=== PATIENT | female | born 1955 | race Caucasian/White ===

== ENCOUNTER 2020-07-18 15:59 | Emergency (ER) | payer OTHER, SELFPAY ==
[2020-07-18 16:02] VITALS: BP 147/81; PULSE 67; RESP 17; TEMP 36.7; O2SAT 98; BMI 27.4
--- NOTE | 2020-07-18 16:06 | EKG12_ITS ---
Test Reason : PALPS/SOB Blood Pressure : / mmHG Vent. Rate : 070 BPM Atrial Rate : 070 BPM P-R Int : 120 ms QRS Dur : 080 ms QT Int : 424 ms P-R-T Axes : 017 045 053 degrees QTc Int : 457 ms Sinus rhythm with Premature supraventricular complexes Otherwise normal ECG Confirmed by REESE DONALD, TREE ([id number]), mapping editor KHADRA RAMAN ([id number]) on 07/20/2020 11:22:23 AM Referred By: JARROD/ELTON Confirmed By:TREE LEIGH MD
--- NOTE | 2020-07-18 16:14 | NURSING ---
NO OLD EKGS
--- NOTE | 2020-07-18 16:40 | ED.VIS.GEN ---
History of Present Illness Chief Complaint: Palpitations Informant: Patient Narrative: 64-year-old female presenting with palpitations. She states is been going on for a few weeks. Patient states she had lab work done at her primary care's office prior to this and states that everything was normal. Patient does not have any chest pain. She does not have a cough, fever, chills. She is eating and drinking normally and making normal urine and stool. Patient states that she gets palpitations whether she is sitting or walking. Today she states her palpitations were the worst over the last couple weeks. She states that she had to sit down because she felt a little short of breath. Patient has a little bit of lightheadedness as well. This is resolved on arrival. Patient's EKG interpreted by myself is sinus rhythm without signs of ischemia and there is one PAC that is noted. I did attempt to get a chest x-ray however the patient refused stating that would be too expensive. Lab work-up is unremarkable with exception of an elevated TSH however her T4 is normal. Patient is on Synthroid. Patient counseled on findings and is comfortable being discharged home at this time. Patient can return precautions. Impression: 1. Palpitations 2. PACs Past Medical History - Allergies and Home Meds Allergies/Adverse Reactions: Allergies Sulfa (Sulfonamide Antibiotics) Adverse Reaction (Verified 07/18/20 16:01) NO ENERGY Primary Care Physician: Krys Dobson MD [Primary Care Provider] - Prior records reviewed: Yes Past Medical History: - - Hyperlipidemia, hypothyroidism Lives: Spouse/ Significant Other Smoking Status: Unknown if ever smoked Alcohol: None Drugs: None Review of Systems General: Denies: Chills, Fever, Sweats Eyes: Denies: Visual changes - bilaterally, Diplopia ENT: Denies: Rhinorrhea, Sore throat Cardiovascular: Reports: Palpitations. Denies: Chest pain, Heart racing Respiratory: Reports: Dyspnea. Denies: Cough, Dyspnea on exertion Gastrointestinal: Denies: Abdominal pain, Nausea, Vomiting, Diarrhea, Melena, Hematochezia Genitourinary: Denies: Dysuria, Hematuria, Frequency Musculoskeletal: Denies: Back pain, Extremity Pain Skin: Denies: Rash, Wounds Neurological: Denies: Headache, Weakness, Numbness Psych: Reports: Anxiety. Denies: Depression, Suicidal thoughts, Suicidal ideations, -, - Physical Exam Vital Signs/Narrative: Vital Signs Temp Pulse Resp BP Pulse Ox 07/18/20 16:02 98.1 F 67 17 147/81 H 98 Inital Vital Signs reviewed: Yes General: Well nourished, No Acute Distress Head: Normocephalic, Atraumatic Eyes: Perrl, EOMI ENT: Moist mucous membranes, Sinus tenderness Cardiovascular: Regular rate, Regular rhythm Respiratory: No distress, CTA bilaterally Extremities: Nontender, No edema Skin: Normal color, No rash. Negative for: Cyanosis, Diaphoresis Neurological: Alert, Oriented x3, Cranial nerves II-XII grossly intact Psychological: Normal affect, Normal Mood ED Disposition - Plan for ED Patient: Disposition: Home or Assisted Living Instructions: ED Palpitations Referrals: Krys Dobson MD [Primary Care Provider] -
[2020-07-18 16:58] VITALS: PULSE 66; O2SAT 99
[2020-07-18 17:07] LABS: Absolute Neutrophil Count 5.4 X10^3/uL (2.0-7.7); Basophil# 0.03 X10^3/uL; Basophil% 0.4 % (0-1); Eosinophil# 0.05 X10^3/uL; Eosinophils% 0.6 % (0-5); Hematocrit 39.6 % (37-47); Hemoglobin 13.1 g/dL (12.0-15.0); Lymphocyte % 21.6 % (19-41); Mean Corp Hgb Conc 33.1 g/dL (32-36); Mean Corpuscular Hgb 33.7 pg (27.0-32.0); Mean Corpuscular Volume 101.8 fL (81-99); Mean Platelet Vol. 10.7 fl (6.2-12.0); Monocyte% 7.6 % (0-10); NRBC Flagged by Analyzer 0 % (0-5); Neutrophil # 5.44 X10^3/uL (2.7-7.7); Neutrophil % 69.3 % (47-70); Platelet Count 277 K/mm3 (150-450); RBC Distribution Width CV 12.2 % (11.6-14.6); RBC Distribution Width SD 45.1 fl (35.1-43.9); Red Blood Count 3.89 M/mm3 (4.2-5.4); White Blood Count 7.9 K/mm3 (4.4-11.0)
--- NOTE | 2020-07-18 17:30 | ED.RN ---
at this time patient verblizes concern for payment of hospital visit and getting xray. patient and nurse discuss she can refuse if she would like or wait till blood work is back to take. dr. velázquez aware patient would like to wait till blood work is resulted.
[2020-07-18 17:32] LABS: Anion Gap 5 (5-15); BUN 23 mg/dL (7-18); BUN/Creat Ratio 36.6 RATIO (10-20); Calcium,Total 9.6 mg/dL (8.5-10.1); Chloride 107 mmol/L (98-107); Creatinine, Serum 0.63 mg/dL (0.55-1.02); EST Glomerular Filtration Rate 101 mL/min (>60); Est Glom Filt Rate - Afr Amer 123 mL/min (>60); Estimated Creatinine Clearance 81.18 ml/min; Glucose 86 mg/dL (74-106); Magnesium 2.2 mg/dL (1.6-2.6); Potassium 3.9 mmol/L (3.5-5.1); Sodium Level 138 mmol/L (136-145)
[2020-07-18 18:20] LABS: T4 Free Direct 0.89 ng/dL (0.76-1.46)
[2020-07-18 18:53] VITALS: BP 171/96; PULSE 62; RESP 16; O2SAT 100
== END 2020-07-18 18:55 | disposition home or self-care (01) ==
PROVIDERS: Emergency Provider Student in an Organized Health Care Education/Training Program; PCP Family Medicine
DX: R00.2 Palpitations (principal); E78.5 Hyperlipidemia, unspecified; E03.9 Hypothyroidism, unspecified; Z79.899 Other long term (current) drug therapy
CPT/HCPCS: 80048; 83735; 84439; 84443; 84484; 85025; 93005; 99284

== ENCOUNTER 2024-04-08 09:57 | Emergency (ER) | payer MEDICARE, BC, SELFPAY ==
[2024-04-08 09:58] VITALS: BP 156/95; PULSE 68; RESP 18; TEMP 37.1; O2SAT 98; BMI 28.3
--- NOTE | 2024-04-08 10:15 | EDS_ITS ---
HPI History of Present Illness Chief Complaint: Chest Pain Onset/Context/Timing Onset: Days (2) Activity at onset: gradual Timing: Intermittent Quality: Positive for Aching and Dull Location: Substernal Worsened By: Nothing and Exertion Relieved By: Nothing Associated Symptoms: Positive for Lightheadedness, Acid Reflux and Palpitations; Negative for Nausea, Vomiting, Diaphoresis, Dyspnea, Cough or Fever Narrative Narrative: Patient presents with chest pain that has been off and on for the past 2 days. Patient describes it as dull and aching. Patient states it comes on gradually. Patient states it is over the substernal area. Patient states that sometimes it comes on with exertion. Patient states other times it comes on at rest. Patient states nothing seems to help with it. Patient admits to occasional lightheadedness. Patient admits to some palpitations. Patient states she does have a history of paroxysmal A-fib. Patient also admits to some reflux symptoms. CVD Risk Factors: Positive for Hypercholesterolemia; Negative for Hypertension, Diabetes, Family History 1' </=55 or Smoking PE Risk Factors: Negative for Recent Travel/Surgery, Recent Immobilization, Prior DVT or PE, Cancer or OCP + Smoking + >/=35 [facility] Medical History Chest pain Home Medications ?Medication ?Instructions ?Recorded ?Last Taken ?Type Sertraline HCl 100 mg PO DAILY 07/18/20 Unknown History alprazolam 0.25 mg tablet 0.125 mg PO DAILY 07/18/20 Unknown History folic acid 1 mg tablet 1 mg PO DAILY 07/18/20 Unknown History levothyroxine 75 mcg tablet 75 mcg PO DAILY 07/18/20 Unknown History methotrexate sodium 2.5 mg tablet 2.5 mg PO QWEEK 07/18/20 Unknown History pravastatin 20 mg tablet 20 mg PO QHS 07/18/20 Unknown History Allergy/AdvReac Type Severity Reaction Status Date / Time Sulfa (Sulfonamide AdvReac NO ENERGY Verified 07/18/20 16:01 Antibiotics) Surgical History no surgical history no surgical history Social History (Updated 04/08/24 @ 11:[address] Lee Fuentes, DO) Smoking Status: Former smoker alcohol intake: current alcohol intake frequency: a few times a month Alcohol type: wine ROS ROS ED Constitutional Constitutional ED: Denies chills or fever(s) Eyes Eyes: Denies blurry vision or change in vision ENT ENT ED: Denies rhinorrhea or sore throat Cardiovascular Cardiovascular: Reports chest pain and palpitations Respiratory/Chest Respiratory/Chest: Denies cough or dyspnea Gastrointestinal Gastrointestinal: Denies nausea or vomiting Genitourinary Genitourinary ED: Denies dysuria or hematuria Musculoskeletal Musculoskeletal: Denies back pain or neck pain Integumentary Denies abscess or rash Neurologic Neurologic: Reports headache(s); Denies weakness Allergic/Immunologic Allergic/Immunologic ED: Denies mouth swelling or urticaria EXAM Physical Exam Const Vital Signs: 04/08/24 09:58 04/08/24 10:49 04/08/24 11:24 Temperature 98.7 F Temperature Source Oral Pulse Rate 68 62 Respiratory Rate 18 14 Respiratory Effort Normal Non-Labored Blood Pressure 156/95 H 163/101 H Blood Pressure Mean 115 121 Pulse Ox 98 95 Oxygen Delivery Method Room Air Room Air 04/08/24 11:43 Temperature Temperature Source Pulse Rate 63 Respiratory Rate 12 Respiratory Effort Blood Pressure 160/96 H Blood Pressure Mean 117 Pulse Ox 96 Oxygen Delivery Method Room Air Positive well nourished and well developed General Appearance ED: well developed and NAD HEENT Reports moist mucous membranes Neck supple and no JVD Chest Wall palpation of chest normal Resp normal respiratory effort and clear to auscultation bilaterally Cardio regular rate and regular rhythm GI soft to palpation, non-tender and non-distended Extremity normal to inspection General Extremety ED: Negative for edema or tenderness General Extremity: Negative for edema Neuro oriented x3, CN's II-XII intact bilaterally and no sensory deficits noted Sensorium / Orientation: awake and alert Motor Exam: strength 5/5 throughout Psych mental status grossly normal Heart Score History: Slightly/Non-Suspicious ECG: Normal Age: >/= 65 years Risk Factors: 1 or 2 Risk Factors Troponin: </= Normal Limit Score: 3 MDM MDM MDM Narrative Medical decision making narrative: Differential diagnosis includes cardiac dysrhythmia, cardiac ischemia, pneumonia, electrolyte abnormality, gastroesophageal reflux disease, and anxiety. EKG will be obtained to assess for cardiac dysrhythmia and cardiac ischemia. Chest x-ray will be obtained to assess for pneumonia and pneumothorax. CBC will be obtained to assess for leukocytosis and anemia. Basic metabolic profile will be obtained to assess for electrolyte abnormality and renal function. High-sensitivity troponin will be obtained to assess for cardiac ischemia. Lab Data Attestation: I reviewed the patient's lab results. Lab results narrative: CBC was reviewed within normal limits. Basic metabolic profile was reviewed and was within normal limits. High-sensitivity troponin was reviewed and was normal at 4. Labs: Laboratory Results - last 24 hr 04/08/24 10:10 WBC 5.9 RBC 4.22 Hgb 13.3 Hct 40.4 MCV 95.7 MCH 31.5 MCHC 32.9 RDW Std Deviation 41.8 RDW Coeff of Evelyn 11.9 Plt Count 234 MPV 12.2 H Immature Gran % (Auto) 0.200 Neut % (Auto) 66.6 Lymph % (Auto) 23.1 Gilchrist % (Auto) 7.1 Eos % (Auto) 2.7 Baso % (Auto) 0.3 Absolute Neuts (auto) 3.9 Absolute Lymphs (auto) 1.37 Nucleated RBC % 0 Sodium 140 Potassium 4.0 Chloride 108 H Carbon Dioxide 26.0 Anion Gap 6 BUN 16 Creatinine 0.70 Estim Creat Clear Calc 66.76 Est GFR (MDRD) Af Amer 107 Est GFR (MDRD) Non-Af 88 BUN/Creatinine Ratio 22.9 H Glucose 104 Calcium 9.2 Troponin I High Sens 4 Radiography Chest X-Ray - ED: 1 View, Read by ED Physician, Read by Radiologist and No Acute Disease Diagnostic Testing: Portable 1 view chest x-ray was obtained. On my independent interpretation, lung duckworth are clear. There is normal cardiac silhouette. Bony thorax is normal. There is no acute process noted. Radiologist also interpreted the x- ray and agrees. EKG Initial EKG: Attestation: I personally reviewed and interpreted this EKG as follows: Interpretation: Sinus Rhythm (66) and No Acute Injury Pattern Comments: EKG was obtained. On my independent interpretation, it showed a normal sinus rhythm with a rate of 66. NM interval, QRS interval, and QTc intervals were all normal. [place] was normal. There are no acute ST or T wave changes. Prior EKG tracings: available for review Prior: Unchanged (07/18/2020) Treatment and Re-Evaluation :: Patient was given aspirin here. Patient was advised of her findings. Patient has a HEART score of 3. Patient was advised that this is low risk for acute cardiac event. Patient was instructed to follow-up with her primary care physician in 5 to 7 days. Patient was instructed to return if worse in any way. Patient understood and was agreeable with the plan. All questions were answered. Discharge Plan Triage Chief Complaint: Chest Pain ED Provider: Lee Fuentes Dx/Rx/DC Orders Clinical Impression: Chest pain, Elevated blood pressure reading Instructions: ED Chest Pain, Uncertain Cause Prescriptions: No Action levothyroxine 75 MCG tablet 75 mcg PO DAILY alprazolam 0.25 MG tablet 0.125 mg PO DAILY methotrexate sodium 2.5 MG tablet 2.5 mg PO QWEEK Rx Instructions: saturday folic acid 1 MG tablet 1 mg PO DAILY pravastatin 20 MG tablet 20 mg PO QHS Sertraline HCl 100 mg PO DAILY Primary Care Provider: Krys Dobson Referrals: Krys Dobson MD [Primary Care Provider] - 5-7 Days Print Language: Uruguayan Disposition Disposition: Home, Self Care
--- NOTE | 2024-04-08 10:41 | RAD_ITS ---
EXAM: XR CHEST, 1 VIEW CLINICAL INDICATION: chest pain TECHNIQUE: Frontal view of the chest. COMPARISON: No relevant prior studies available. FINDINGS: LUNGS AND PLEURAL SPACES: Unremarkable. No consolidation or edema. No pneumothorax. No effusion. HEART: Unremarkable. Cardiac silhouette not enlarged. MEDIASTINUM: Central airways and mediastinal contour are unremarkable. BONES/JOINTS: Unremarkable. No acute fracture. SOFT TISSUES: Unremarkable. RAD/Chest 1 View (Portable) IMPRESSION: No radiographic evidence of acute cardiopulmonary disease. Electronically Signed: Nehemias Fraire MD at 13:17 EST ,
--- NOTE | 2024-04-08 10:41 | EKG12_ITS ---
Test Reason : CP Blood Pressure : */* mmHG Vent. Rate : 66 BPM Atrial Rate : 66 BPM P-R Int : 144 ms QRS Dur : 80 ms QT Int : 432 ms P-R-T Axes : 33 34 54 degrees QTcB Int : 452 ms Normal sinus rhythm Normal ECG Confirmed by KATRIN ODNALD, EDMAR ([id number]), marketing editor ERIN PAYAN ([id number]) on 04/10/2024 6:24:07 AM Referred By: Confirmed By: EDMAR WILKES MD
[2024-04-08] MEDS: Aspirin 81 MG TAB.CHEW 324 MG PO (10:47)
[2024-04-08 10:55] LABS: Absolute Lymphocyte Count 1.37 X10^3/uL (0.83-4.51); Absolute Neutrophil Count 3.9 X10^3/uL (2.0-7.7); Basophil# 0.02 X10^3/uL; Basophil% 0.3 % (0-1); Eosinophil# 0.16 X10^3/uL; Eosinophils% 2.7 % (0-5); Hematocrit 40.4 % (37-47); Hemoglobin 13.3 g/dL (12.0-15.0); Lymphocyte # 1.37 X10^3/ul (0.83-4.51); Lymphocyte % 23.1 % (19-41); Mean Corp Hgb Conc 32.9 g/dL (32-36); Mean Corpuscular Hgb 31.5 pg (27.0-32.0); Mean Corpuscular Volume 95.7 fL (81-99); Mean Platelet Vol. 12.2 fl (6.2-12.0); Monocyte# 0.42 X10^3/uL; Monocyte% 7.1 % (0-10); NRBC Flagged by Analyzer 0 % (0-5); Neutrophil # 3.94 X10^3/uL (2.7-7.7); Neutrophil % 66.6 % (47-70); Platelet Count 234 K/mm3 (150-450); RBC Distribution Width CV 11.9 % (11.6-14.6); RBC Distribution Width SD 41.8 fl (35.1-43.9); Red Blood Count 4.22 M/mm3 (4.2-5.4); White Blood Count 5.9 K/mm3 (4.4-11.0)
[2024-04-08 11:14] LABS: Anion Gap 6 (5-15); BUN 16 mg/dL (7-18); BUN/Creat Ratio 22.9 RATIO (10-20); Calcium,Total 9.2 mg/dL (8.5-10.1); Chloride 108 mmol/L (98-107); EST Glomerular Filtration Rate 88 mL/min (>60); Est Glom Filt Rate - Afr Amer 107 mL/min (>60); Estimated Creatinine Clearance 66.76 ml/min; Glucose 104 mg/dL (74-106); Sodium Level 140 mmol/L (136-145); Troponin-I HS 4 pg/mL (3.0-54.0)
[2024-04-08 11:24] VITALS: BP 163/101; PULSE 62; RESP 14; O2SAT 95
[2024-04-08 11:43] VITALS: BP 160/96; PULSE 63; RESP 12; O2SAT 96
--- NOTE | 2024-04-08 12:15 | ED.RN ---
intermittent chest pain has happened a couple of times in ED, pt reports it lasts about 10 seconds. does not want to try nitro at this time.
[2024-04-08 13:25] VITALS: BP 170/94; PULSE 58; RESP 15; O2SAT 98
== END 2024-04-08 13:29 | disposition home or self-care (01) ==
PROVIDERS: Emergency Provider Emergency Medicine; PCP Family Medicine; Visit Provider Emergency Medicine
DX: R07.9 Chest pain, unspecified (principal); Z87.891 Personal history of nicotine dependence; R00.2 Palpitations; E78.00 Pure hypercholesterolemia, unspecified; R03.0 Elevated blood-pressure reading, without diagnosis of hypertension; R51.9 Headache, unspecified; R42 Dizziness and giddiness; K21.9 Gastro-esophageal reflux disease without esophagitis
CPT/HCPCS: 71045; 80048; 84484; 85025; 93005; 99284; A4216